=== PATIENT | female | born 1965 | race Two or more races ===

== ENCOUNTER 2017-09-17 21:04 | Emergency (ER) | payer OTHER ==
[~2017-09-17] VITALS: Ht 170.2 cm; Wt 89.8 kg
[~2017-09-17 21:04] MED LIST: AMLO10TA PO; AMLO5TAB PO
--- NOTE | 2017-09-17 21:04 | NUR ---
PATIENT BIB [facility] TO ER CHAIR Shahnaz
[2017-09-17 21:08] VITALS: BP 199/110
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
[2017-09-17] MEDS ORDERED: METOPROLOL SUCCINATE 50 MG TABER PO ONE (21:25)
[2017-09-17] MEDS ORDERED: METOPROLOL 25 MG TAB ONE (21:44)
[2017-09-17] MEDS ORDERED: METOPROLOL 25 MG TAB PO ONE (21:50)
--- NOTE | 2017-09-17 21:50 | NUR ---
PATIENT EXPRESSING WISH TO SEE MOTHER.
[2017-09-17] MEDS ORDERED: LORazepam 1 MG TAB PO ONE (21:55)
--- NOTE | 2017-09-17 22:05 | NUR ---
PO MEDS GIVEN-NADR AT THIS TIME
--- NOTE | 2017-09-17 22:06 | NUR ---
Pupils equal and reactive to light bilaterally. No facial droop noted. No smile deficit noted. Speech normal for patient. Patient is alert and oriented to person, place, time and event. Bilateral hand sales record clerk equal. Bilateral foot push equal.
--- NOTE | 2017-09-17 22:26 | NUR ---
Patient appears to be resting comfortably in bed. Vital Signs within normal limits. Respirations even and unlabored.
[2017-09-17 22:44] VITALS: BP 179/99
== END 2017-09-17 22:44 ==
LOC: MED 21:04
DX: I10 Essential (primary) hypertension (principal); F17.210 Nicotine dependence, cigarettes, uncomplicated; Z86.73 Personal history of transient ischemic attack (TIA), and cerebral infarction without residual deficits; Z88.2 Allergy status to sulfonamides
CPT/HCPCS: 99283

== ENCOUNTER 2019-05-19 14:51 | Emergency (ER) | payer MEDICAID, OTHER ==
[~2019-05-19] VITALS: Ht 124.5 cm; Wt 81.6 kg
--- NOTE | 2019-05-19 14:52 | NUR ---
EMILIA BALES ALS TO ER BED 06
[2019-05-19 14:55] VITALS: BP 147/79
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
--- NOTE | 2019-05-19 17:14 | NUR ---
PATIENT ALERT AND ORIENTED, BREATHING EVEN AND UNLABORED
[2019-05-19 17:27] LABS: BASOPHILS % (AUTO) 0.3 % (0.0-2.0); EOSINOPHILS # (AUTO) 0.2 K/uL (0-0.4); HEMATOCRIT 37.4 % (36-48); HEMOGLOBIN 12.4 g/dL (12.0-16.0); LYMPHOCYTES # (AUTO) 0.3 K/uL (2.5-16.5); LYMPHOCYTES % (AUTO) 3.5 % (20.5-51.1); MEAN CORPUSCULAR HEMOGLOBIN 31 pg (27-31); MEAN CORPUSCULAR HGB CONC 33 g/dL (33-37); MEAN CORPUSCULAR VOLUME 92.3 fL (80-94); MONOCYTES # (AUTO) 0.6 K/uL (0.8-1.0); MONOCYTES % (AUTO) 7.7 % (1.7-9.3); NEUTROPHILS # (AUTO) 7.2 K/uL (1.8-7.7); NEUTROPHILS % (AUTO) 86.5 % (42.2-75.2); PLATELET COUNT (AUTO) 349 K/uL (140-450); RED BLOOD CELL COUNT(AUTO) 4.05 MIL/uL (4.20-5.40); RED CELL DISTRIBUTION WIDTH 13.4 % (11.6-13.7); WHITE BLOOD COUNT (AUTO) 8.3 K/uL (4.8-10.8)
[2019-05-19 18:00] LABS: PROTHROMBIN TIME 9.1 secs (10.8-13.4)
[2019-05-19 18:09] LABS: ALBUMIN 3.7 g/dL (3.4-5.0); CARBON DIOXIDE 27.1 mmol/L (21-32); CREATININE 0.8 mg/dL (0.6-1.3); TOTAL BILIRUBIN 0.3 mg/dL (0.0-1.0)
[2019-05-19 18:24] LABS: ANION GAP 15.4 (8-16); POTASSIUM 3.5 mmol/L (3.5-5.1)
--- NOTE | 2019-05-19 18:42 | NUR ---
PATIENT RESTING WITH EYES CLOSED, BREATHING EVEN AND UNLABORED
--- NOTE | 2019-05-19 18:54 | NUR ---
PATIENT ALERT AND AWAKE, BREATHING EVEN AND UNLABORED
--- NOTE | 2019-05-19 18:55 | NUR ---
PER DR ROSA DOES NOT WANT 0.9 NACL BOLUS
[2019-05-19] MEDS: NACL 0.9% 1,000 ML IV SCH ×2 (19:02→19:32)
--- NOTE | 2019-05-19 19:08 | NUR ---
Pt report given to HARITHA ESPOSITO. Transfer of care at this time.
[2019-05-19] MEDS ORDERED: ACETAMINOPHEN 325 MG TAB PO ONE (19:30)
[2019-05-19 19:36] VITALS: BP 132/79
--- NOTE | 2019-05-19 19:37 | NUR ---
Patient discharged with v/s stable. Written and verbal after care instructions given and explained. Patient verbalized understanding. Ambulatory with steady gait. All questions addressed prior to discharge. Advised to follow up with PMD.
[2019-05-19 19:47] LABS: APPEARANCE,URINE CLEAR (CLEAR); BILIRUBIN,URINE NEGATIVE (NEGATIVE); BLOOD, URINE NEGATIVE (NEGATIVE); COLOR,URINE YELLOW (YELLOW); LEUKOCYTE ESTERASE ,URINE NEGATIVE (NEGATIVE); NITRITE, URINE NEGATIVE (NEGATIVE); PH,URINE 5.5 (5.0-9.0); UGLUCOSE NEGATIVE (NEGATIVE)
== END 2019-05-19 19:37 | disposition home or self-care (01) ==
LOC: MED 14:51
DX: F41.9 Anxiety disorder, unspecified (principal); R11.2 Nausea with vomiting, unspecified; I10 Essential (primary) hypertension; F32.9 Major depressive disorder, single episode, unspecified; F43.10 Post-traumatic stress disorder, unspecified; Z86.73 Personal history of transient ischemic attack (TIA), and cerebral infarction without residual deficits; Z79.899 Other long term (current) drug therapy; Z88.2 Allergy status to sulfonamides
CPT/HCPCS: 36415; 71045; 80053; 81003; 83880; 84484; 85025; 85610; 85730; 93005; 99284; Q0092

== ENCOUNTER 2019-05-24 12:19 | Emergency (ER) | payer MEDICAID ==
[~2019-05-24] VITALS: Ht 154.9 cm; Wt 81.6 kg
[2019-05-24 12:22] VITALS: BP 168/96
--- NOTE | 2019-05-24 12:30 | NUR ---
54 Y/O F BIBA C/C DIZZINESS/N/V/D SINCE FRIDAY. PT FOUND ON A PARKING LOT. PER EMS PT HOMELESS. PT A/OX4. PER PT NO PCP AND HAS NOT TAKEN ANY RX FOR THE DIZZINESS. PT ALLERGIES TO SULFA. HX BRAIN MENINGIOMA,HTN,DM,PTSD,DEPRESSION. RX METFORMIN,AMLODOPINE,PROZAC. PER ASSESSMENT, PT DTS, SI. PER PT "BEEN HAVING THOUGHTS OF HANGING SELF, SEE PEOPLE WITH BLACK EYES, BEEN HEARING VOICES, AND THROW SELF IN TRAIN TRACKS" PT DENIES DTO/GD.
--- NOTE | 2019-05-24 12:36 | NUR ---
DR HUNT AT BEDSIDE
[2019-05-24] MEDS ORDERED: NACL 0.9% 1,000 ML IV SCH (12:37)
[2019-05-24] MEDS ORDERED: DEXAMETHASONE 10 MG/ML VIAL IVP ONE (12:40)
[2019-05-24] MEDS ORDERED: diphenhydrAMINE 50 MG/ML VIAL IVP ONE (12:40)
[2019-05-24] MEDS ORDERED: ALBUTEROL SULFATE/IPRATROPIU 3 ML SOL IH ONE (12:40)
[2019-05-24] MEDS ORDERED: LEVOFLOXACIN 500 MG/D5W PREMIX 100 ML IV ONE (12:40)
--- NOTE | 2019-05-24 13:04 | NUR ---
LAB AT BEDSIDE
--- NOTE | 2019-05-24 13:04 | NUR ---
RT AT BEDSIDE
--- NOTE | 2019-05-24 13:12 | NUR ---
X-Ray at bedside.
--- NOTE | 2019-05-24 13:15 | NUR ---
XRAY AT BEDSIDE
--- NOTE | 2019-05-24 13:21 | NUR ---
[facility] aware of patient. Will assist with placement if and when needed. Please fax packet to [phone] for assistance
[2019-05-24 13:24] LABS: BASOPHILS % (AUTO) 0.1 % (0.0-2.0); EOSINOPHILS # (AUTO) 0.2 K/uL (0-0.4); EOSINOPHILS % (AUTO) 2.8 % (0.0-4.0); HEMATOCRIT 39.7 % (36-48); HEMOGLOBIN 13.3 g/dL (12.0-16.0); LYMPHOCYTES # (AUTO) 1.4 K/uL (2.5-16.5); LYMPHOCYTES % (AUTO) 22.6 % (20.5-51.1); MEAN CORPUSCULAR HEMOGLOBIN 31 pg (27-31); MEAN CORPUSCULAR HGB CONC 34 g/dL (33-37); MONOCYTES # (AUTO) 0.9 K/uL (0.8-1.0); MONOCYTES % (AUTO) 14.3 % (1.7-9.3); NEUTROPHILS # (AUTO) 3.7 K/uL (1.8-7.7); NEUTROPHILS % (AUTO) 60.2 % (42.2-75.2); PLATELET COUNT (AUTO) 381 K/uL (140-450); RED BLOOD CELL COUNT(AUTO) 4.36 MIL/uL (4.20-5.40); RED CELL DISTRIBUTION WIDTH 13.3 % (11.6-13.7); WHITE BLOOD COUNT (AUTO) 6.2 K/uL (4.8-10.8)
[2019-05-24 13:31] LABS: ANION GAP 12.1 (8-16); CARBON DIOXIDE 31.3 mmol/L (21-32); CHLORIDE 97 mmol/L (98-107); CREATININE 0.7 mg/dL (0.6-1.3); GFR ARICAN-AMERICAN 113 mL/min (>90); GLUCOSE 116 mg/dL (74-106); POTASSIUM 3.4 mmol/L (3.5-5.1); SODIUM SERUM 137 mmol/L (136-145); UREA NITROGEN, BLOOD 12 mg/dL (7-18)
[2019-05-24 13:35] LABS: BILIRUBIN,URINE NEGATIVE (NEGATIVE); BLOOD, URINE NEGATIVE (NEGATIVE); COLOR,URINE YELLOW (YELLOW); LEUKOCYTE ESTERASE ,URINE NEGATIVE (NEGATIVE); NITRITE, URINE NEGATIVE (NEGATIVE); UGLUCOSE NEGATIVE (NEGATIVE)
[2019-05-24 13:37] LABS: ALBUMIN 3.7 g/dL (3.4-5.0); ASPARTATE AMINOTRANSFERASE 25 U/L (15-37); TOTAL BILIRUBIN 0.4 mg/dL (0.0-1.0)
[2019-05-24 13:39] LABS: APPEARANCE,URINE SLIGHTLY HAZY (CLEAR); RBC,URINE 0 /HPF (0-5); WBC,URINE 0-5 /HPF (0-5)
[2019-05-24 13:43] LABS: ACETAMINOPHEN < 0.5 ug/ml (10-30)
[2019-05-24 13:57] LABS: BARBITURATE, URINE NEG. ng/ml (NEG <=200); BENZODIAZEPINE, URINE NEG. ng/mL (NEG <=200); CANNABINOID, URINE NEG. ng/mL (NEG <=50); COCAINE, URINE NEG. ng/mL (NEG <=300); OPIATE, URINE NEG. ng/mL (NEG <=2000); PHENCYCLIDINE SCREEN,URINE NEG. ng/mL (NEG <=25)
[2019-05-24] MEDS ORDERED: FLUO40CA6 PO (14:33)
[2019-05-24] MEDS ORDERED: LIP80 PO (14:33)
[2019-05-24] MEDS ORDERED: MOME100A IH (14:33)
[2019-05-24] MEDS ORDERED: METF500T PO (14:33)
[2019-05-24] MEDS ORDERED: AMLO10TA PO (14:33)
[2019-05-24] MEDS ORDERED: ATA25 PO (14:33)
[2019-05-24] MEDS ORDERED: METO25TA PO (14:33)
--- NOTE | 2019-05-24 15:10 | NUR ---
PT RESTING IN BED, SITTER AT BEDSIDE, SIDE RAIL X2
--- NOTE | 2019-05-24 16:18 | NUR ---
MEDICALLY CLEARED BY DR. HUNT. PT MAY BE TRANSFERRED TO A PSYCHIATRIC FACILITY.
--- NOTE | 2019-05-24 16:20 | NUR ---
Patient is voluntarily wanting to seek help at a psychiatric hospital. Pt states she is willing to go to a psychiatric hospital. Pt advised we would be looking for placement at this time.
--- NOTE | 2019-05-24 17:23 | NUR ---
PT RESTING IN BED, SITTER AT BEDSIDE, SIDE RAIL X2
--- NOTE | 2019-05-24 17:35 | NUR ---
Received packet for placement
--- NOTE | 2019-05-24 17:36 | NUR ---
Called the following facilities: [facility] Ayse, packet fax for review [facility] s/w Derrell. Still doing discharges. Ask to fax packet for review [facility]w Radha, packet fax for transfer list [facility] s/w Jana, no beds available
--- NOTE | 2019-05-24 17:39 | NUR ---
Called the following facilities; [facility]. No answer and not able to leave message. Fax packet [facility] s/w Katie no beds [facility] s/w Hortencia, packet fax for wait list
--- NOTE | 2019-05-24 20:39 | NUR ---
REQUESTING SANDWICH. PRODUCTION CONTROL SCHEDULER CALLED.
--- NOTE | 2019-05-24 21:18 | NUR ---
REPORT GIVEN TO LILA Hayes RN FOR CONTINUITY OF CARE
--- NOTE | 2019-05-24 21:19 | NUR ---
RECEIVED REPORT FROM CATE NEIL. TRANSFER OF CARE AT THIS TIME.
--- NOTE | 2019-05-24 21:40 | NUR ---
PROVIDED WITH SANDWICH AND JUICE. PT SITTING UP, EATING IN BED. NO COMPLAINTS AT THIS TIME.
--- NOTE | 2019-05-24 22:42 | NUR ---
PT VERBALLY CONSENTED TO TELEPSYCH CONSULT.
--- NOTE | 2019-05-24 22:59 | NUR ---
TELEPSYCH INITIATED AT THIS TIME PER DR. Dina EPPERSON
--- NOTE | 2019-05-25 00:27 | NUR ---
Checking bed status for updates. So Rashad / Jose Angel - "Reviewing intake paperwork at this time." [facility] / Janette - "We will be reviewing the paperwork shortly, yes we have it." Keanu / Samir - "We don't have any beds this evening." STEFFANIE / Cynthia - "Just walked in and will look over paperwork, however right now I don't have any beds." We will continue to keep the facility updated with any information of placement.
--- NOTE | 2019-05-25 00:34 | NUR ---
CALLED TELEPSYCH FOR FOLLOW UP. SPOKE WITH ANGELA THEN DISPATCHER OSCAR. TOLD WILL CONTACT DOCTOR NOW
--- NOTE | 2019-05-25 00:46 | NUR ---
TELEPSYCH DOCTOR SPEAKING WITH PT VIA REMOTE COMMUNICATION
--- NOTE | 2019-05-25 01:15 | NUR ---
AMBULATES TO WITH UPRIGHT STEADY GAIT WITH SITTER SUPERVISION.
--- NOTE | 2019-05-25 02:13 | NUR ---
SPOKE TO PRINCE FROM TRANSFER CENTER, PT IS GOING TO BE TRANSFERRED TO [facility] UNDER DR. PERDUE. [address]. [phone]. LETICIA MADE AWARE
--- NOTE | 2019-05-25 02:24 | NUR ---
Patient to be transferred to [facility]. Is being transferred due to psychiatric care. Receiving facility has accepting physician and available space. ER physician has signed transfer form. Patient or responsible republican has agreed to transfer and signed form. Patient belongings inventoried and will be sent with patient. Copy of nursing notes, lab reports, EKG, Physicians Orders and X-rays to be sent with patient. Report called to Randee at receiving facility.
--- NOTE | 2019-05-25 02:25 | NUR ---
Received a call from Janette, patient has been accepted to [facility]. Dr. Lopez, [address] nurse to call report to [phone]
--- NOTE | 2019-05-25 02:29 | NUR ---
Janette called from [facility], patient has been accepted under the care of Dr. Lopez. Going to [address], please call report to [phone].
--- NOTE | 2019-05-25 02:45 | NUR ---
[facility] has been called for transfer. ETA is 0445.
--- NOTE | 2019-05-25 03:02 | NUR ---
FOLLOW UP CALL TO TELEPSYCH. SPOKE WITH ANGELA. TOLD WILL FAX REPORT
--- NOTE | 2019-05-25 04:51 | NUR ---
[facility] AT BEDSIDE
[2019-05-25 04:54] VITALS: BP 145/86
--- NOTE | 2019-05-25 04:54 | NUR ---
REPORT GIVEN TO [facility]. PT AMBULATES TO WITH STEADY GAIT. VSS. BELONGINGS RETURNED TO PT. Addendum: 05/25/19 at 0516 by [facility] TRANSFER OF CARE AT THIS TIME.
== END 2019-05-25 04:54 | disposition designated cancer center or children's hospital (05) ==
LOC: MED 12:19
DX: F32.9 Major depressive disorder, single episode, unspecified (principal); R45.851 Suicidal ideations; J20.9 Acute bronchitis, unspecified; F17.200 Nicotine dependence, unspecified, uncomplicated; I10 Essential (primary) hypertension; Z88.2 Allergy status to sulfonamides; Z79.899 Other long term (current) drug therapy; Z79.84 Long term (current) use of oral hypoglycemic drugs; Z59.0 Homelessness; Z86.73 Personal history of transient ischemic attack (TIA), and cerebral infarction without residual deficits
CPT/HCPCS: 36415; 71045; 80053; 80305; 81001; 83605; 85025; 87040; 87086; 87804; 94640; 96365; 96375; 99285; G0480; G0482; J1100; J1200; J1956; J7030; J7620; Q0092

== ENCOUNTER 2021-06-15 02:45 | Emergency (ER) | payer OTHER ==
[~2021-06-15] VITALS: Ht 157.5 cm; Wt 91.2 kg
[~2021-06-15 02:45] MED LIST changes: -AMLO5TAB PO; +ATA25 PO; +FLUO40CA6 PO; +LIP80 PO; +METF500T PO; +METO25TA PO; +MOME100A IH
[2021-06-15 02:49] VITALS: BP 161/113
--- NOTE | 2021-06-15 02:59 | NUR ---
PATIENT AMBULATED TO BED 02
--- NOTE | 2021-06-15 03:01 | NUR ---
CALLED RT FOR BREATHING TX
--- NOTE | 2021-06-15 03:04 | NUR ---
PT TAKEN TO BED 2
--- NOTE | 2021-06-15 03:12 | NUR ---
Dr. Mallory examining patient.
[2021-06-15] MEDS ORDERED: DEXAMETHASONE 10 MG/ML VIAL IM ONE (03:15)
[2021-06-15] MEDS ORDERED: ALBUTEROL SULFATE/IPRATROPIU 3 ML SOL IH ONE (03:15)
[2021-06-15] MEDS ORDERED: BPM/118S31 PO (03:16)
[2021-06-15] MEDS ORDERED: PRED20TA5 PO (03:16)
--- NOTE | 2021-06-15 03:37 | NUR ---
patient to XR via w/c
[2021-06-15 04:25] VITALS: BP 152/82
[2021-06-15] MEDS ORDERED: LEVO-315 PO (05:27)
[2021-06-15] MEDS ORDERED: NICO1PAT TP (05:37)
== END 2021-06-15 05:34 | disposition home or self-care (01) ==
LOC: MED 02:45
DX: S39.011A Strain of muscle, fascia and tendon of abdomen, initial encounter (principal); J44.1 Chronic obstructive pulmonary disease with (acute) exacerbation; R91.8 Other nonspecific abnormal finding of lung field; I10 Essential (primary) hypertension; F17.200 Nicotine dependence, unspecified, uncomplicated; Z86.73 Personal history of transient ischemic attack (TIA), and cerebral infarction without residual deficits; Z88.2 Allergy status to sulfonamides; Z79.899 Other long term (current) drug therapy; X58.XXXA Exposure to other specified factors, initial encounter; Y93.89 Activity, other specified; Y92.89 Other specified places as the place of occurrence of the external cause; Y99.8 Other external cause status
CPT/HCPCS: 71046; 94640; 96372; 99283; J1100

== ENCOUNTER 2021-06-23 04:22 | Emergency (ER) | payer OTHER ==
[~2021-06-23] VITALS: Ht 157.5 cm; Wt 85.0 kg
[~2021-06-23 04:22] MED LIST changes: +BPM/118S31 PO; +LEVO-315 PO; +NICO1PAT TP; +PRED20TA5 PO
[2021-06-23 04:29] VITALS: BP 175/104
--- NOTE | 2021-06-23 04:40 | NUR ---
pt taken to bed 11. given water for ua.
[2021-06-23] MEDS ORDERED: NACL 0.9% 1,000 ML IV SCH (04:55)
[2021-06-23] MEDS ORDERED: KETOROLAC 30 MG/ML VIAL IVP ONE (04:55)
[2021-06-23 05:48] LABS: BASOPHILS # (AUTO) 0.1 K/uL (0.00-0.22); BASOPHILS % (AUTO) 1.3 % (0.0-2.0); EOSINOPHILS # (AUTO) 0.4 K/uL (0-0.4); EOSINOPHILS % (AUTO) 3.8 % (0.0-4.0); HEMATOCRIT 35.9 % (36-48); HEMOGLOBIN 12.4 g/dL (12.0-16.0); LYMPHOCYTES # (AUTO) 2.2 K/uL (2.5-16.5); LYMPHOCYTES % (AUTO) 21.5 % (20.5-51.1); MEAN CORPUSCULAR HEMOGLOBIN 30 pg (27-31); MEAN CORPUSCULAR HGB CONC 34 g/dL (33-37); MEAN CORPUSCULAR VOLUME 88.3 fL (80-94); MONOCYTES # (AUTO) 0.9 K/uL (0.8-1.0); MONOCYTES % (AUTO) 9.1 % (1.7-9.3); NEUTROPHILS # (AUTO) 6.7 K/uL (1.8-7.7); NEUTROPHILS % (AUTO) 64.3 % (42.2-75.2); PLATELET COUNT (AUTO) 462 K/uL (140-450); RED BLOOD CELL COUNT(AUTO) 4.07 MIL/uL (4.20-5.40); RED CELL DISTRIBUTION WIDTH 14.7 % (11.6-13.7); WHITE BLOOD COUNT (AUTO) 10.4 K/uL (4.8-10.8)
[2021-06-23 05:50] LABS: ALBUMIN 3.5 g/dL (3.4-5.0); ANION GAP 10.8 (8-16); CARBON DIOXIDE 31.4 mmol/L (21-32); CREATININE 0.8 mg/dL (0.6-1.3); POTASSIUM 3.2 mmol/L (3.5-5.1); TOTAL BILIRUBIN 0.7 mg/dL (0.0-1.0)
[2021-06-23 06:01] LABS: PROTHROMBIN TIME 9.6 secs (10.8-13.4)
--- NOTE | 2021-06-23 07:15 | NUR ---
REPORT RECEIVED FROM CATE KNIGHT FOR TRANSFER OF CARE
[2021-06-23] MEDS ORDERED: NAPR-54 PO (07:23)
[2021-06-23 07:42] VITALS: BP 154/78
--- NOTE | 2021-06-23 07:45 | NUR ---
Patient discharged with v/s stable. Written and verbal after care instructions given and explained. Patient verbalized understanding. All questions addressed prior to discharge. Advised to follow up with PMD.
== END 2021-06-23 07:42 | disposition home or self-care (01) ==
LOC: MED 04:22
DX: S30.1XXA Contusion of abdominal wall, initial encounter (principal); F17.200 Nicotine dependence, unspecified, uncomplicated; J45.909 Unspecified asthma, uncomplicated; I10 Essential (primary) hypertension; Z88.2 Allergy status to sulfonamides; Z79.899 Other long term (current) drug therapy; Z98.890 Other specified postprocedural states; X58.XXXA Exposure to other specified factors, initial encounter; Y93.89 Activity, other specified; Y92.89 Other specified places as the place of occurrence of the external cause; Y99.8 Other external cause status
CPT/HCPCS: 36415; 74176; 80053; 81002; 81025; 83690; 85025; 85610; 85730; 96361; 96374; 99284; J1885; J7030

== ENCOUNTER 2022-08-09 03:44 | Emergency (ER) | payer BC, OTHER ==
[~2022-08-09] VITALS: Ht 157.5 cm; Wt 72.6 kg
[~2022-08-09 03:44] MED LIST changes: -LEVO-315 PO; +LEVO-481 PO; +METF-346 PO; -METF500T PO; -MOME100A IH; +MOME13HF4 IH; +NAPR-54 PO
--- NOTE | 2022-08-09 03:45 | NUR ---
PT AMAIRANI ALS. TAKEN TO BED 1
--- NOTE | 2022-08-09 03:46 | NUR ---
Dr. Ordaz examining patient.
[2022-08-09 03:48] VITALS: BP 168/106
--- NOTE | 2022-08-09 04:00 | NUR ---
C/O shortness of breath x 4 weeks. Per reported, had shortness of breath on and off for 4 weeks, At the scence, oxygen sat 70, given Albuterol x2 , Patient reported, seen in [facility] ~ 2-3 weeks ago for Pneumonia. PMHx: Asthma
[2022-08-09] MEDS ORDERED: predniSONE 20 MG TAB PO ONE (05:55)
[2022-08-09] MEDS ORDERED: ALBU0.0912 IH (05:57)
[2022-08-09] MEDS ORDERED: PRED20TA5 PO (05:57)
[2022-08-09 07:35] VITALS: BP 176/83
--- NOTE | 2022-08-09 07:36 | NUR ---
ASSUMED CARE FROM JOSIAH ESPOSITO. PT DISCHARGED. PENDING TRANSPORT TO [facility]. PHONE NUMBERS PROVIDED NON-WORKING. PT STATES ARTURO [phone] IS HER MOM. ON PT DEMOGRAPHIC, ANGELA VALDOVINOS LISTED S.O. [phone]. SPOKE W/ CHARGE HUMBERTO ESPOSITO. STATES WILL POSSIBLY PROVIDE UBER HOME IF PT MEETS CRITERIA. COMFORT MEASURES AND SUPPORTIVE CARE CONTINUED. VSS AT THIS TIME. TO CONTINUE PLAN OF CARE. PT DENIES COMPLAINTS AT PRESENT.
== END 2022-08-09 06:45 | disposition home or self-care (01) ==
LOC: MED 03:44
DX: J45.901 Unspecified asthma with (acute) exacerbation (principal); I10 Essential (primary) hypertension; Z79.899 Other long term (current) drug therapy; Z79.2 Long term (current) use of antibiotics; Z88.2 Allergy status to sulfonamides
CPT/HCPCS: 71045; 99283; J7512

== ENCOUNTER 2023-02-23 04:31 | Emergency (ER) | payer MEDICARE, OTHER ==
[~2023-02-23] VITALS: Ht 157.5 cm; Wt 77.1 kg
[~2023-02-23 04:31] MED LIST changes: +ALBU0.0912 IH; -BPM/118S31 PO; +BROM118S70 PO
[2023-02-23 04:40] VITALS: BP 110/90; PULSE 102; RESP 16; TEMP 97.7; O2SAT 99
== END 2023-02-23 05:44 | disposition left against medical advice (07) ==
LOC: MED 04:31
DX: L03.119 Cellulitis of unspecified part of limb (principal); Z53.21 Procedure and treatment not carried out due to patient leaving prior to being seen by health care provider
CPT/HCPCS: 99281

== ENCOUNTER 2023-12-07 03:28 | Emergency (ER) | payer MEDICARE, OTHER ==
[~2023-12-07] VITALS: Ht 165.1 cm; Wt 81.6 kg
[~2023-12-07 03:28] MED LIST changes: +AMOX1TAB8 PO; +CARV12.52 PO; -LEVO-481 PO; +LOSA-270 PO; -METO25TA PO; -NAPR-54 PO; +SPIR50TA NG
[2023-12-07] MEDS ORDERED: EPINEPHrine PFS 0.1 MG/ML SYR IVP ONE (03:52)
[2023-12-07] MEDS ORDERED: PROPOFOL 200 MG/20 ML VIAL IV ONE (04:15)
[2023-12-07] MEDS ORDERED: NOREPINEPHRINE 8 MG in DEXTROSE 5% 250 ML IV PRN (04:15)
[2023-12-07] MEDS ORDERED: NACL 0.9% 1,000 ML IV ONE (04:15)
[2023-12-07] MEDS ORDERED: NOREPINEPHRINE 4 MG/4 ML VIAL IV ONE ×2 (04:36)
[2023-12-07] MEDS ORDERED: PRIMARY CRASH CART TRAY MC ONE (04:45)
== END 2023-12-07 04:45 ==
LOC: MED 03:28
DX: I46.9 Cardiac arrest, cause unspecified (principal); F12.90 Cannabis use, unspecified, uncomplicated; F17.210 Nicotine dependence, cigarettes, uncomplicated; J45.909 Unspecified asthma, uncomplicated; I10 Essential (primary) hypertension; E78.5 Hyperlipidemia, unspecified; Z79.84 Long term (current) use of oral hypoglycemic drugs; Z79.2 Long term (current) use of antibiotics; Z79.899 Other long term (current) drug therapy; Z88.2 Allergy status to sulfonamides
CPT/HCPCS: 31500; 36556; 71045; 92950; 93005; 99291; C1751; J0171; J3490